=== PATIENT | female | born 1985 | race Two or more races ===

== ENCOUNTER 2018-01-23 05:28 | Inpatient (IN) | payer MEDICAID ==
[2018-01-23] MEDS ORDERED: LACTATED RINGER'S 1,000 ML IV (06:37)
[2018-01-23] MEDS ORDERED: CARBOPROST 250 MCG INJ IM ×2 (07:00→22:00)
[2018-01-23] MEDS ORDERED: METHYLERGONOVINE 0.2 MG INJ IM ×2 (07:00→22:00)
[2018-01-23] MEDS ORDERED: MISOPROSTOL 200 MCG TAB PR ×2 (07:00→22:00)
[2018-01-23] MEDS ORDERED: OXYTOCIN 30 UNITS/LR 500 ML IV ×3 (07:00→22:00)
[2018-01-23] MEDS ORDERED: BUTORPHANOL 2 MG INJ IV (07:00)
[2018-01-23] MEDS ORDERED: LIDOCAINE 1% (MPF) 30 ML INJ INJ (07:00)
[2018-01-23] MEDS: LACTATED RINGER'S 1,000 ML IV ×5 (08:23→19:04)
[2018-01-23 08:34] LABS: ADD MAN DIFF? NO
[2018-01-23 09:13] LABS: PARTIAL THROMBOPLASTIN TIME 26.2 Sec (23.0-35.0)
[2018-01-23 09:20] LABS: INR 0.82; PROTIME 11.4 Sec (11.9-14.9); PT RATIO 0.9
[2018-01-23 09:30] LABS: BASOPHILS % 0.2 % (0.0-2.0); EOSINOPHILS # 0.1 10^3/ul (0.0-0.5); EOSINOPHILS % 0.9 % (0.0-7.0); HEMOGLOBIN 11.9 g/dl (12.0-16.0); LYMPHOCYTES # 1.9 10^3/ul (0.8-2.9); LYMPHOCYTES % 18.8 % (15.0-51.0); MEAN CORPUSCULAR HEMOGLOBIN 29.8 pg (29.0-33.0); MEAN CORPUSCULAR HGB CONC 33.1 g/dl (32.0-37.0); MEAN PLATELET VOLUME 10.9 fl (7.4-10.4); MONOCYTE # 0.6 10^3/ul (0.3-0.9); MONOCYTES % 5.7 % (0.0-11.0); NEUTROPHIL # 7.3 10^3/ul (1.6-7.5); NEUTROPHILS % 73.9 % (39.0-77.0); PLATELET COUNT 255 10^3/UL (140-415); RED CELL DISTRIBUTION WIDTH 13.8 % (11.5-14.5)
[2018-01-23 09:30] LABS: WHITE BLOOD COUNT 9.8 10^3/ul (4.8-10.8)
[2018-01-23 09:43] LABS: HEPATITIS B SURFACE ANTIGEN NEGATIVE (NEGATIVE)
[2018-01-23] MEDS: AMPICILLIN 2 GM/NS (PMX) 100 ML IV (10:58)
[2018-01-23] MEDS ORDERED: FENTAnyl 2MCG/ML-ROPIV 0.2% 100 ML (12:09)
[2018-01-23] MEDS ORDERED: NALOXONE (0.4 MG/ML) INJ IV (12:30)
[2018-01-23] MEDS ORDERED: NALBUPHINE HCL (10 MG/1 ML) INJ IV (12:30)
[2018-01-23] MEDS ORDERED: DIPHENHYDRAMINE 50 MG INJ IV (12:30)
[2018-01-23] MEDS: AMPICILLIN 1 GM/NS (PMX) 50 ML IV ×3 (12:50→21:00)
[2018-01-23 17:22] LABS: RAPID PLASMA REAGIN NONREACTIVE (NR)
[2018-01-23] MEDS: ONDANSETRON 4 MG INJ IV (19:34)
[2018-01-23] MEDS: FENTAnyl 2MCG/ML-ROPIV 0.2% 100 ML BAG EPI (19:40)
[2018-01-23] MEDS: OXYTOCIN 30 UNITS/LR 500 ML IV ×3 (19:46→22:24)
[2018-01-23] MEDS ORDERED: LACTATED RINGER'S 1,000 ML IV* (21:50)
[2018-01-23] MEDS ORDERED: ACETAMINOPHEN 325 MG TAB PO ×2 (22:00)
[2018-01-23] MEDS ORDERED: SENNA/DOCUSATE NA (8.6MG/50MG) TAB PO (22:00)
[2018-01-23] MEDS ORDERED: ONDANSETRON 4 MG INJ IV (22:00)
[2018-01-23] MEDS ORDERED: MAGNESIUM HYDROXIDE 30ML CUP PO (22:00)
[2018-01-24] MEDS: WITCH HAZEL/GLYCERIN PAD PR (00:17)
[2018-01-24] MEDS: BENZOCAINE 20% 56 ML SPRAY TOP ×2 (00:17→22:00)
[2018-01-24] MEDS: LANOLIN 7 GM TUBE TOP (00:17)
[2018-01-24] MEDS: IBUPROFEN 600 MG TAB PO ×2 (00:17→12:53)
[2018-01-24 07:28] LABS: ADD MAN DIFF? NO
[2018-01-24 07:32] LABS: BASOPHILS % 0.2 % (0.0-2.0); EOSINOPHILS % 0.2 % (0.0-7.0); HEMATOCRIT 29.9 % (37.0-47.0); HEMOGLOBIN 9.8 g/dl (12.0-16.0); LYMPHOCYTES % 14.1 % (15.0-51.0); MEAN CORPUSCULAR HEMOGLOBIN 29.9 pg (29.0-33.0); MEAN CORPUSCULAR HGB CONC 32.8 g/dl (32.0-37.0); MEAN CORPUSCULAR VOLUME 91.2 fl (82.0-101.0); MEAN PLATELET VOLUME 11.1 fl (7.4-10.4); MONOCYTE # 0.9 10^3/ul (0.3-0.9); MONOCYTES % 6.1 % (0.0-11.0); NEUTROPHIL # 11.3 10^3/ul (1.6-7.5); PLATELET COUNT 206 10^3/UL (140-415); RED BLOOD COUNT 3.28 10^6/ul (4.20-5.40)
[2018-01-24 07:32] LABS: WHITE BLOOD COUNT 14.3 10^3/ul (4.8-10.8)
[2018-01-25] MEDS: IBUPROFEN 600 MG TAB PO (05:37)
== END 2018-01-25 15:40 | disposition home or self-care (01) | DRG 807 ==
LOC: OBT 05:28 → L-D 05:29 → OBT 06:20 → L-D 06:20 → PP1 23:52
PROVIDERS: Obstetrics & Gynecology
PROC: 10E0XZZ Delivery of Products of Conception, External Approach (ICD-10-PCS; principal; 2018-01-23)
DX: O99.824 Streptococcus B carrier state complicating childbirth (principal); O69.1XX0 Labor and delivery complicated by cord around neck, with compression, not applicable or unspecified; O77.0 Labor and delivery complicated by meconium in amniotic fluid; Z37.0 Single live birth; Z3A.38 38 weeks gestation of pregnancy
CPT/HCPCS: 62319; 85025; 85610; 85730; 86592; 86850; 86900; 86901; 87340; 88307; 99464